=== PATIENT | female | born 1945 | race Caucasian/White ===

== ENCOUNTER 2017-10-06 09:05 | Day surgery (SDC) | payer MEDICARE ==
[~2017-10-06 09:05] MED LIST: Acetaminophen TAB* 325 MG PO PRN; Buffered Lidocaine 0.9% SYRIN* 5 ML/SYR SYRINGE INTRADERM ONE
[2017-10-06 12:15] VITALS: BP 144/71
[2017-10-06] MEDS ORDERED: Povidone Iodine 5% OPTH* 30 ML BTL ONE (12:24)
[2017-10-06] MEDS ORDERED: Neomycin/Polymy/Dex OPTH.SUSP* MAXITROL 0.1% 5 ML ONE (12:24)
[2017-10-06] MEDS ORDERED: Lidocaine 2% EPI 1:200000 MPF*10-20 ML VIAL ONE (12:24)
[2017-10-06] MEDS ORDERED: acetaZOLAMIDE TAB* 250 MG ONE (12:24)
[2017-10-06] MEDS ORDERED: Proparacaine 0.5% OPHTH.SOL* 15 ML BTL ONE (12:24)
[2017-10-06] MEDS ORDERED: Phenylephrine 2.5% OPTH.SOL* 2 ML BTL ONE (12:24)
[2017-10-06] MEDS ORDERED: Ketorolac 0.5% OPHTH (NF) 0.5 % 5 ML BTL ONE (12:24)
[2017-10-06] MEDS ORDERED: Cyclopentolate 1% OPTH.SOL* 2 ML BTL ONE (12:24)
[2017-10-06] MEDS ORDERED: Lidocaine 1%* 5 ML VIAL ONE (12:24)
--- NOTE | 2017-10-07 01:19 | OP ---
DATE OF OPERATION: 10/06/17 [facility] DATE OF : 41 SURGEON: Abdelrahman Serrato M.D. PREOPERATIVE DIAGNOSIS: Cataract, right eye. POSTOPERATIVE DIAGNOSIS: Cataract, right eye. OPERATIVE PROCEDURE: Extracapsular cataract extraction with intraocular lens implant right eye. DESCRIPTION OF PROCEDURE: The patient was brought to the operating room after being given 1/2% Alcaine with epinephrine drops in the preoperative area. The eye was prepped and draped in the usual sterile fashion. Sterile drape and eyelid speculum were placed. Again, topical 1/2% Alcaine with epinephrine was given. A paracentesis incision was made at the 9 o'clock position with the No.75 blade. Clear cornea incision 2.2 x 2.2-mm was created at the 12 o'clock position starting at the anterior limbus using the 2.2-mm keratome. The anterior chamber was irrigated with 0.4 mL of 1% non-preservative intracameral lidocaine and filled with DisCoVisc. A capsulorrhexis was completed using the cystotome and the Utrata forceps. Hydrodissection was performed with balanced salt solution. The lens nucleus was removed with the Phacoemulsification handpiece without incident. Cortex was removed with the irrigation-aspiration handpiece. The capsular bag was re-inflated using DisCoVisc and an [id number] 25 implant was inserted with the shooter. The irrigation-aspiration handpiece was used to remove all residual DisCoVisc. The eye was refilled with balanced salt solution and the wound checked and found to be watertight. Topical Maxitrol drops were given. [id number]/[facility] #: [id number] [facility]
== END 2017-10-06 11:49 | disposition home or self-care (01) ==
LOC: OREAST 09:05
PROVIDERS: ATTEND Specialist
DX: H25.11 Age-related nuclear cataract, right eye (principal); R03.0 Elevated blood-pressure reading, without diagnosis of hypertension; J30.9 Allergic rhinitis, unspecified; M19.049 Primary osteoarthritis, unspecified hand; F41.9 Anxiety disorder, unspecified
CPT/HCPCS: A9270-GY; V2787

== ENCOUNTER 2017-10-13 09:10 | Day surgery (SDC) | payer MEDICARE ==
[2017-10-13] MEDS ORDERED: Midazolam* 1 MG/ML 5 ML VIAL (5 MG) ONE (11:58)
[2017-10-13 12:32] VITALS: BP 137/57
[2017-10-13] MEDS ORDERED: acetaZOLAMIDE TAB* 250 MG ONE (15:32)
[2017-10-13] MEDS ORDERED: Povidone Iodine 5% OPTH* 30 ML BTL ONE (15:33)
[2017-10-13] MEDS ORDERED: Cyclopentolate 1% OPTH.SOL* 2 ML BTL ONE (15:33)
[2017-10-13] MEDS ORDERED: Phenylephrine 2.5% OPTH.SOL* 2 ML BTL ONE (15:33)
[2017-10-13] MEDS ORDERED: Lidocaine 2% EPI 1:200000 MPF*10-20 ML VIAL ONE (15:33)
[2017-10-13] MEDS ORDERED: Ketorolac 0.5% OPHTH (NF) 0.5 % 5 ML BTL ONE (15:33)
[2017-10-13] MEDS ORDERED: Proparacaine 0.5% OPHTH.SOL* 15 ML BTL ONE (15:33)
[2017-10-13] MEDS ORDERED: Neomycin/Polymy/Dex OPTH.SUSP* MAXITROL 0.1% 5 ML ONE (15:33)
--- NOTE | 2017-10-14 05:32 | OP ---
DATE OF OPERATION: 10/13/17 [facility] DATE OF : 41 SURGEON: Abdelrahman Serrato M.D. PREOPERATIVE DIAGNOSIS: Cataract, left. POSTOPERATIVE DIAGNOSIS: Cataract, left. OPERATIVE PROCEDURE: Extracapsular cataract extraction with intraocular lens implant left eye. DESCRIPTION OF PROCEDURE: The patient was brought to the operating room after being given 1/2% Alcaine with epinephrine drops in the preoperative area. The eye was prepped and draped in the usual sterile fashion. Sterile drape and eyelid speculum were placed. Again, topical 1/2% Alcaine with epinephrine was given. A paracentesis incision was made at the 3 o'clock position with the No.75 blade. Clear cornea incision 2.2 x 2.2-mm was created at the 6 o'clock position starting at the anterior limbus using the 2.2-mm keratome. The anterior chamber was irrigated with 0.4 mL of 1% non-preservative intracameral lidocaine and filled with DisCoVisc. A capsulorrhexis was completed using the cystotome and the Utrata forceps. Hydrodissection was performed with balanced salt solution. The lens nucleus was removed with the Phacoemulsification handpiece without incident. Cortex was removed with the irrigation-aspiration handpiece. The capsular bag was re-inflated using DisCoVisc and an [id number] 24.5 implant was inserted with the shooter. The irrigation-aspiration handpiece was used to remove all residual DisCoVisc. The eye was refilled with balanced salt solution and the wound checked and found to be watertight. Topical Maxitrol drops were given. [id number]/[facility] #: [id number] [facility]
== END 2017-10-13 13:31 | disposition home or self-care (01) ==
LOC: OREAST 09:10
PROVIDERS: ATTEND Specialist
DX: H25.12 Age-related nuclear cataract, left eye (principal); M19.90 Unspecified osteoarthritis, unspecified site; Z86.73 Personal history of transient ischemic attack (TIA), and cerebral infarction without residual deficits; F41.9 Anxiety disorder, unspecified; R42 Dizziness and giddiness
CPT/HCPCS: A9270-GY; J2250; V2788

== ENCOUNTER 2017-11-06 15:00 | Emergency (ER) | payer MEDICARE ==
--- OUTSIDE RECORDS SUMMARY | 2017-11-06 15:12 | XMS REPORT ---
:1945 External Reference #:[id number] Author Organization [facility] Address [address] [place] [address] Phone [phone] Care Team Providers Name Role Phone Jessica Guzman MD Primary Care Physician Unavailable Payers Type Date Identification Numbers Payment Provider Subscriber Medicare Primary Policy Number: [id number] Medicare - NGS Ольга Leander Diego PayID: [id number] [address] [facility] [place] [address] [place] Policy Number: [id number] [facility] Ольга Leander Diego PayID: [id number] [address] [place] [address] Problems Date Description Provider Status Onset: 09/08/2016 Nuclear senile cataract Ayush Davison M.D. Active Onset: 10/07/2017 Presence of intraocular lens Ayush Davison M.D. 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 right eye three times a day, start the day before surgery Ketorolac 09/27/ Active Solution 0.5% 10ml use one Abdelrahman Baljit Tromethamine 2018 drop in [place], the right M.D. eye three times a day, start the day before surgery Prednisolone 09/27/ Active Suspension 1% 15ml 1 drops Abdelrahman WillMargret Acetate 2018 right eye [place]leo, three M.D. times a day. taper as directed Aleve 00/00/ Active Capsules 220mg as needed Unknown 0000 Biotin Maximum 00/00/ Active Tablets 83506dim Unknown 0000 Dispers Results Description No Information Procedures Date CPT Code Description Status 10/13/2017 83330 Extracapsular Cataract Extraction W/Intraocular Lens Completed 10/06/2017 08412 Extracapsular Cataract Extraction W/Intraocular Lens Completed 09/27/2017 83043 Ophthalmic Biometry Completed 09/27/2017 30858 Ophthalmic Biometry Completed 09/21/2017 62986 Est Patient Comprehensive Exam Completed 09/08/2016 80082 New Patient Comprehensive Exam Completed Encounters Type Date Location Provider CPT E/M Dx Office Visit 09/27/2017 2:45p Abdelrahman Meehan MD, Abdelrahman Meehan, [address] H25.11 Kellie H25.12 Plan of Care Future Appointment(s):10/26/2017 9:00 am - Abdelrahman Meehan M.D. at Abdelrahman Meehan MD, 10/14/2017 - Abdelrahman Meehan M.D.Z96.1 Presence of intraocular lensComments:Smoking can increase the risk of developing or worsening any eye related disease, as well as affect your overall health. If you are a smoker, we strongly recommend that you quit.If you are not a smoker, we strongly recommend that you do not start. The artifical lens implant in your left eye appears to be stable. Since this is the first day after surgery, your left eye is still dilated and the vision will still be slightly blurry. The dilation will go down over the next day or two. Continue taking your eye drops as directed on the surgical calendar. If you have any questions, please call our office. ~LINDA MEEHAN RECOMMENDS THAT WHEN YOU ARE AT WORK AND ARE WORKING AT YOUR DESK, MAKE SURE YOU HAVE GOOD LIGHTING AND TRY A +1.00-+1.25 OVER THE COUNTER READE~Segun
--- OUTSIDE RECORDS SUMMARY | 2017-11-06 15:12 | XMS REPORT ---
:1945 External Reference #:[id number] Author Organization [facility] Address [address] [place] [address] Phone [phone] Care Team Providers Name Role Phone Jessica Guzman MD Primary Care Physician Unavailable Payers Type Date Identification Numbers Payment Provider Subscriber Medicare Primary Policy Number: [id number] Medicare - NGS Ольга Leander Diego PayID: [id number] [address] [place] [address] [place] Policy Number: [id number] [facility] Ольга Leander Diego PayID: [id number] [address] [place] [address] Problems Date Description Provider Status Onset: 09/08/2016 Nuclear senile cataract Ayush Davison M.D. Active Onset: 10/07/2017 Presence of intraocular lens Ayush Davison M.D. Active Family History Date Family Member(s) Problem(s) Comments Father No Current Problems Mother No Current Problems Social History Type Date Description Comments Marital Status Legal Status: Occupation [place] Work Status Retired ETOH Use Denies alcohol use Smoking Patient has never smoked Recreational Drug Use Denies Drug Use Daily Caffeine Consumes on average 1 soda per day Allergies, Adverse Reactions, Alerts Date Description Reaction Status Severity Comments 09/08/2016 Sulfa Antibiotics active 10/26/2017 Silver active Medications Medication Date Status Form Strength Qnty SIG Indications Ordering Provider Ketorolac 09/27/ Active Solution 0.5% 10ml 1 drop Abdelrahman J. Tromethamine 2018 left eye Arleo, daily M.D. Prednisolone 09/27/ Active Suspension 1% 15ml 1 drop Abdelrahman J. Acetate 2018 left eye [place]leo, daily M.D. Aleve / Active Capsules 220mg as needed Unknown 0000 Biotin Maximum / Active Tablets 97680udo Unknown 0000 Dispers Ciprofloxacin 09/27/ Hx Solution 0.3% 10unit instill Abdelrahman FERNANDEZ 2018 - s one drop Arleo, 10/25/ in the M.D. 2018 right eye three times a day, start the day before surgery Results Description No Information Procedures Date CPT Code Description Status 10/13/2017 93972 Extracapsular Cataract Extraction W/Intraocular Lens Completed 10/06/2017 87002 Extracapsular Cataract Extraction W/Intraocular Lens Completed 09/27/2017 53324 Ophthalmic Biometry Completed 09/27/2017 89379 Ophthalmic Biometry Completed 09/21/2017 95724 Est Patient Comprehensive Exam Completed 09/08/2016 60297 New Patient Comprehensive Exam Completed Encounters Type Date Location Provider CPT E/M Dx Office Visit 09/27/2017 2:45p Abdelrahman Serrato MD, Abdelrahman Serrato, [address] H25.11 Kellie H25.12 Plan of Care 10/26/2017 - Abdelrahman Serrato M.D.Z96.1 Presence of intraocular lensComments: Smoking can increase the risk of developing or worsening any eye related disease , as well as affect your overall health. If you are a smoker, we strongly recommend that you quit.If you are not a smoker, we strongly recommend that you do not start. Your lens implant looks stable in both eyes at this time. You should be done, or almost done with your drops at this time according to your surgical calendar. I have given you a prescription for glasses. If you have any questions, please feel free to call our office at .
--- NOTE | 2017-11-06 15:55 | ED ---
Adult Trauma - HPI Summary HPI Summary: The pt is a 72 y/o [facility] yesterday at 21:00. She tripped over a low bench hitting the floor with her head. She also scraped her face at the bridge of the nose. She notes soreness of the L thumb, epitaxis ( not actively bleeding), and swelling on the brow of her face. She denies LOC and visual disturbance. The sx are relieved by ice and Aleve. The pt denies use of blood thinners. This is scribe Della Ford documenting for attending Arpit Quinones. I, Arpit Quinones MD, personally performed the services described in this documentation as scribed in my presence and it is both accurate and complete. - History of Current Complaint Chief Complaint: EDHeadache Stated Complaint: FELL HIT HEAD Time Seen by Provider: 11/06/17 15:45 Hx Obtained From: Patient Mechanism of Injury: Fall Ambulatory at the Scene: No Onset/Duration: Started Days Ago - 1 day ago Onset of Pain: Post Accident Onset Severity: Moderate Current Severity: Moderate Pain Intensity: 4 Pain Scale Used: 0-10 Numeric Location: Head, Other - L thumb Alleviating Factor(s): Ice, OTC Meds - Aleve Associated Signs & Symptoms: Negative: Loss of Consciousness - Allergy/Home Medications Allergies/Adverse Reactions: Allergies Allergy/AdvReac Type Severity Reaction Status Date / Time No Known Allergies Allergy Verified 11/06/17 15:02 PMH/Surg Hx/FS Hx/Imm Hx Previously Healthy: No Musculoskeletal History: Reports: Hx Arthritis - hands, left knee Sensory History: Reports: Hx Cataracts - both eyes, Hx Contacts or Glasses - glasses Denies: Hx Hearing Aid Opthamlomology History: Reports: Hx Cataracts - both eyes, Hx Contacts or Glasses - glasses Neurological History: Reports: Hx Headaches - Cancer History Hx Chemotherapy: No Hx Radiation Therapy: No - Surgical History Surgery Procedure, Year, and Place: MENISCUS repair. right knee replacement 2016. appendectomy with 1972 Hx Anesthesia Reactions: No Infectious Disease History: No Infectious Disease History: Denies: Traveled Outside the [place] in Last 30 Days - Family History Known Family History: Positive: Other - Denies FHx of Breast CA and anesthesia reaction Negative: Cardiac Disease, Hypertension, Diabetes - Social History Occupation: Retired Lives: With Family Alcohol Use: None Substance Use Type: Reports: None Smoking Status (MU): Never Smoked Tobacco Review of Systems Eyes: Other - Negative: Changes in vision Positive: Other - Positive: Facial scrapes and swelling , epitaxis (not actively bleeding) Positive: Other - L thumb soreness Neurological: Negative - LOC All Other Systems Reviewed And Are Negative: Yes Physical Exam - Summary Physical Exam Summary: Appearance: The patient is well-nourished in no acute distress and in no acute pain. Skin: The skin is warm and dry and skin color reflects adequate perfusion. HEENT:Mild swelling over her L eyebrow; The head is normocephalic and atraumatic. The pupils are equal and reactive. The conjunctivae are clear and without drainage. Nares are patent and without drainage. Mouth reveals moist mucous membranes and the throat is without erythema and exudate. The external ears are intact. The ear canals are patent and without drainage. The tympanic membranes are intact. Neck: The neck is supple with full range of motion and non-tender. There are no carotid bruits. There is no neck vein distension. Respiratory: Chest is non-tender. Lungs are clear to auscultation and breath sounds are symmetrical and equal. Cardiovascular: Heart is regular rate and rhythm. There is no murmur or rub auscultated. Pulses are symmetrical and equal. Abdomen: The abdomen is soft and non-tender. There are normal bowel sounds heard in all four quadrants and there is no organomegaly palpated. Musculoskeletal: L thenar eminence; There is no back tenderness noted. Extremities have full range of motion. There is good capillary refill. There is no calf tenderness elicited. Neurological: Patient is alert and oriented to person, place and time. The patient has symmetrical motor strength in all four extremities. Cranial nerves are grossly intact. Deep tendon reflexes are symmetrical and equal in all four extremities. Psychiatric: The patient has an appropriate affect and does not exhibit any anxiety or depression. Triage Information Reviewed: Yes Vital Signs On Initial Exam: Initial Vitals Temp Pulse Resp BP Pulse Ox 98.6 F 91 16 143/90 98 11/06/17 15:03 11/06/17 15:03 11/06/17 15:03 11/06/17 15:03 11/06/17 15:03 Vital Signs Reviewed: Yes Diagnostics - Vital Signs Vital Signs Temp Pulse Resp BP Pulse Ox 11/06/17 15:40 91 20 97 11/06/17 15:03 98.6 F 91 16 143/90 98 - Laboratory Lab Statement: Any lab studies that have been ordered have been reviewed, and results considered in the medical decision making process. - Radiology L Wrist XRay Radiology Interpretation Completed By: Radiologist - IMPRESSION: OSTEOPENIA. OSTEOARTHRITIS. NO ACUTE OSSEOUS INJURY. THE DEGREE OF OSTEOPENIA MAY MAKE A ONDISPLACED FRACTURE RADIOGRAPHICALLY OCCULT. IF SYMPTOMS PERSIST, RECOMMEND REPEAT IMAGING. The ED Physician has reviewed this radiolology report and agrees with it. - CT Brain CT CT Interpretation Completed By: Radiologist - IMPRESSION: NO ACUTE INTRACRANIAL PATHOLOGY. The ED physician has reviewed this radiology report and agrees with it. Adult Trauma Course/Dx - Course Course Of Treatment: CT of the brain and x-ray of her left wrist were both negative. I recommended some additional pain medication on top of the Naprosyn that she is currently taking and follow up if not improving quickly. - Diagnoses Provider Diagnoses: Hand contusion, Head injury Discharge - Sign-Out/Discharge Documenting (check all that apply): Patient Departure - DC - Discharge Plan Condition: Stable Disposition: HOME Prescriptions: traMADol TAB* [Ultram*] 50 mg PO Q6HR PRN #20 tab MDD 4 PRN Reason: Pain Patient Education Materials: Head Injury (ED), Hematoma (ED) Referrals: Jessica Guzman MD [Primary Care Provider] - 3 Days Additional Instructions: Return to ED for any new or worsening symptoms - Billing Disposition and Condition Condition: STABLE Disposition: Home
--- NOTE | 2017-11-06 16:33 | RAD ---
HISTORY: trauma, left thumb pain COMPARISONS: None VIEWS: 3, Frontal, lateral, and oblique views of the left wrist FINDINGS: BONE DENSITY: There is diffuse osteopenia. BONES: There is no acute displaced fracture. There is a well-corticated bone fragment of the styloid process of L1 which May reflect remote post injury. JOINTS: There is advanced osteoarthritis of the first CMC joint. ALIGNMENT: There is no dislocation. SOFT TISSUES: Unremarkable. OTHER FINDINGS: None. IMPRESSION: OSTEOPENIA. OSTEOARTHRITIS. NO ACUTE OSSEOUS INJURY. THE DEGREE OF OSTEOPENIA MAY MAKE A NONDISPLACED FRACTURE RADIOGRAPHICALLY OCCULT. IF SYMPTOMS PERSIST, RECOMMEND REPEAT IMAGING. .
--- NOTE | 2017-11-06 16:53 | RAD ---
HISTORY: trauma, head trauma COMPARISONS: August 16, 2012 TECHNIQUE: Multiple contiguous axial CT scans were obtained of the head without intravenous contrast. FINDINGS: HEMORRHAGE/INFARCT: There is no hemorrhage or acute infarct. MASSES/SHIFT: There is no mass or shift. EXTRA-AXIAL SPACES: There are no extra-axial fluid collections. SULCI AND VENTRICLES: The sulci and ventricles are normal in size and position for the patient's stated age. CEREBRUM: There are no focal parenchymal abnormalities. BRAINSTEM: There are no focal parenchymal abnormalities. CEREBELLUM: There are no focal parenchymal abnormalities. VESSELS: The vessels are grossly normal. PARANASAL SINUSES: The paranasal sinuses are clear. ORBITS: The orbits are unremarkable. BONES AND SOFT TISSUE: There is mild soft tissue swelling along the left frontal scalp. OTHER: None IMPRESSION: NO ACUTE INTRACRANIAL PATHOLOGY.
[2017-11-06 17:45] VITALS: BP 155/86
== END 2017-11-06 17:45 | disposition home or self-care (01) ==
LOC: ED 15:00
DX: S60.222A Contusion of left hand, initial encounter (principal); S09.90XA Unspecified injury of head, initial encounter; W18.09XA Striking against other object with subsequent fall, initial encounter; Y93.9 Activity, unspecified; Y92.9 Unspecified place or not applicable; M85.832 Other specified disorders of bone density and structure, left forearm; M19.032 Primary osteoarthritis, left wrist
CPT/HCPCS: 70450; 99282

== ENCOUNTER → 2019-01-27 08:37 | Day surgery (SDC) | payer MEDICARE ==
[~2019-01-27 08:37] MED LIST changes: -Buffered Lidocaine 0.9% SYRIN* 5 ML/SYR SYRINGE INTRADERM ONE; +Buffered Lidocaine 1% SYRIN* 1 ML/SYRINGE INTRADERM ONE; +Dexamethasone IV* 4 MG/ML 1 ML (4 MG) IV SLOW PU ONE; +Dexamethasone IV* 4 MG/ML 1 ML (4 MG) ONE; +DiMENhydriNATE IV* 50 MG/ML VIAL IV PUSH PRN; +Famotidine IV* 10 MG/ML 2 ML (20 mg) IV ONE; +Famotidine IV* 10 MG/ML 2 ML (20 mg) ONE; +HYDROcodone/ACETAMIN 5-325 MG* 1 TAB PO PRN; +Ketorolac INJ* 30 MG/ML 1 ML VIAL ONE; +Lidocaine 2% PF * 5 ML VIAL ONE; +Midazolam* 1 MG/ML 2 ML VIAL (2 MG) ONE; +Naloxone* 0.4 MG/ML 1 ML VIAL IV PRN; +Ondansetron INJ* 2 MG/ML VIAL ONE; +Propofol* 10 MG/ML 20 ML BTL ONE; +Silver Nitrate/Potassium Nitr* 1 EA STICK ONE; +fentaNYL* 50 MCG/ML 2 ML VIAL (100 MCG VIAL) IV PRN; +fentaNYL* 50 MCG/ML 2 ML VIAL (100 MCG VIAL) ONE; +oxyCODONE TAB* 5 MG TAB PO PRN
[2019-01-27] MEDS: Lactated Ringers 1000 ML Bag* 1,000 ML IV SCH ×2 (10:19→11:40)
[2019-01-27 14:00] VITALS: BP 154/87
--- NOTE | 2019-02-10 03:08 | OP ---
DATE OF OPERATION: 01/27/19 - [facility] DATE OF : 41 SURGEON: Jon Angelo MD. ANESTHESIA: General anesthetic with endotracheal intubation. PRE-OP DIAGNOSIS: Pelvic ultrasound consistent with intrauterine mass, polyp versus fibroid. POST-OP DIAGNOSIS: Pelvic ultrasound consistent with intrauterine mass, polyp versus fibroid and stenotic atrophied cervix OPERATIVE PROCEDURES: Exam under anesthesia, the patient had been scheduled for a hysteroscopic polypectomy, D and C, and possible hysteroscopic myomectomy ; however, this was an aborted procedure. ESTIMATED BLOOD LOSS: None. FLUIDS: She received IV crystalloid fluid. URINE OUTPUT: Clear. DESCRIPTION OF PROCEDURE: The patient was taken to the operating room where she was identified. She was placed on the operating room table, where general anesthetic was obtained without difficulty. She was placed in the dorsal lithotomy position and prepped and draped in normal sterile fashion. Attention was then brought up to the patient's perineum, where an exam under anesthesia revealed normal external genitalia consistent with atrophic changes from menopause. A weighted speculum was returned to the patient's vagina. The bladder was catheterized and drained of clear urine. At this point, the cervix was identified and grasped with a single-tooth tenaculum. I then proceeded to identify the cervical os; however, this was noted to be completely stenotic and I was unable to introduce the smallest dilator available in the operating room, which consisted of a lacrimal duct dilator. Due to the extensive stenosis of the cervix, I was unable to start or do the procedure; therefore, a decision was made to abort the procedure at this time. All the instruments were removed from the patient's vagina. Sponge, lap and needle counts were correct x2. She was then transferred to the recovery room area in stable condition. [id number]/[facility] #: [id number] MTDD
== END | disposition home or self-care (01) ==
LOC: OR 08:37
PROVIDERS: ATTEND Obstetrics & Gynecology
DX: N84.0 Polyp of corpus uteri (principal); Z53.09 Procedure and treatment not carried out because of other contraindication; N88.2 Stricture and stenosis of cervix uteri; N95.2 Postmenopausal atrophic vaginitis; R14.0 Abdominal distension (gaseous); I10 Essential (primary) hypertension; R42 Dizziness and giddiness
CPT/HCPCS: A9270-GY; J1100; J1885; J2250; J2405; J2704; J3010

== ENCOUNTER 2019-11-28 11:34 | Observation (INO) ==
[~2019-11-28 11:34] MED LIST changes: -Acetaminophen TAB* 325 MG PO PRN; +Buffered Lidocaine 1% SYRIN 1 ml INTRADERM ONE; -Buffered Lidocaine 1% SYRIN* 1 ML/SYRINGE INTRADERM ONE; -Dexamethasone IV* 4 MG/ML 1 ML (4 MG) IV SLOW PU ONE; -Dexamethasone IV* 4 MG/ML 1 ML (4 MG) ONE; -DiMENhydriNATE IV* 50 MG/ML VIAL IV PUSH PRN; -Famotidine IV* 10 MG/ML 2 ML (20 mg) IV ONE; -Famotidine IV* 10 MG/ML 2 ML (20 mg) ONE; -HYDROcodone/ACETAMIN 5-325 MG* 1 TAB PO PRN; -Ketorolac INJ* 30 MG/ML 1 ML VIAL ONE; +Lactated Ringers 1000 ml BAG 1,000 ML IV SCH; -Lidocaine 2% PF * 5 ML VIAL ONE; -Midazolam* 1 MG/ML 2 ML VIAL (2 MG) ONE; -Naloxone* 0.4 MG/ML 1 ML VIAL IV PRN; -Ondansetron INJ* 2 MG/ML VIAL ONE; -Propofol* 10 MG/ML 20 ML BTL ONE; -Silver Nitrate/Potassium Nitr* 1 EA STICK ONE; -fentaNYL* 50 MCG/ML 2 ML VIAL (100 MCG VIAL) IV PRN; -fentaNYL* 50 MCG/ML 2 ML VIAL (100 MCG VIAL) ONE; -oxyCODONE TAB* 5 MG TAB PO PRN
[2019-11-28] MEDS ORDERED: ceFAZolin 2 GM PREMIX 2 GM/50 ML BAG ONE (11:56)
[2019-11-28] MEDS ORDERED: ROPIVACAINE 5 MG/ML 30 ML BTL (0.5%) ONE (14:53)
[2019-11-28] MEDS ORDERED: fentaNYL 100 mcg/2 ml 50 MCG/ML VIAL ONE ×3 (15:00→18:24)
[2019-11-28] MEDS ORDERED: Midazolam 2 mg/2 ml VIAL 1 mg/ml 2 ml VIAL (2 mg) ONE ×2 (15:00→15:30)
[2019-11-28] MEDS ORDERED: Rocuronium 50 mg VIAL 10 mg/ml 5 ml VIAL (50 mg) ONE ×2 (15:39→16:44)
[2019-11-28] MEDS ORDERED: DiMENhydriNATE IV 50 mg/ml 1 ml VIAL IV PUSH PRN (16:41)
[2019-11-28] MEDS ORDERED: Naloxone 0.4 mg VIAL 0.4 mg/ml 1 ml VIAL IV PRN (16:41)
[2019-11-28] MEDS ORDERED: Phenylephrine 40 mcg/mL 10mL (400mcg) SYRINGE ONE (17:16)
[2019-11-28] MEDS ORDERED: Ondansetron 4 mg VIAL 2 MG/ML 2 ml VIAL ONE (17:28)
[2019-11-28] MEDS ORDERED: Dexamethasone IV 4 MG/ML VIAL 1 ml VIAL ONE (17:28)
[2019-11-28] MEDS ORDERED: Metoclopramide 5 MG/ML VIAL (10 mg) ONE (17:28)
[2019-11-28] MEDS ORDERED: Sugammadex 500 MG/5 ML 5 ml VIAL IV PUSH ONE (17:28)
[2019-11-28] MEDS ORDERED: Morphine 2 MG/ML SYRINGE IV PRN (18:20)
[2019-11-28] MEDS ORDERED: Ondansetron ODT 4 mg TAB 4 MG TAB PO PRN (18:20)
[2019-11-28] MEDS ORDERED: Lactulose 30 ml UDC PO PRN (18:20)
[2019-11-28] MEDS ORDERED: oxyCODONE/Acetamin 5/325 mg TAB PO PRN ×2 (18:20)
[2019-11-28] MEDS ORDERED: Magnesium Hydroxide LIQ 30 ML UDC PO PRN (18:20)
[2019-11-28] MEDS ORDERED: Ondansetron 4 mg VIAL 2 MG/ML 2 ml VIAL IV PRN (18:20)
[2019-11-28] MEDS ORDERED: diPHENhydraMINE 25 mg TAB PO PRN (18:20)
[2019-11-28] MEDS ORDERED: diPHENhydraMINE IV 50 MG/ML 1 ml VIAL (BENADRYL) IV PRN (18:20)
[2019-11-28] MEDS: fentaNYL 100 mcg/2 ml 50 MCG/ML VIAL IV PRN ×4 (18:25→18:55)
[2019-11-28] MEDS ORDERED: HYDROmorphone 1 MG/1 ML SYRINGE ONE (18:58)
[2019-11-28] MEDS ORDERED: Lactated Ringers 1000 ml BAG 1,000 ML IV SCH (19:00)
[2019-11-28] MEDS: HYDROmorphone 1 MG/1 ML SYRINGE IV PRN ×2 (19:00→19:39)
[2019-11-28] MEDS: Magnesium Hydroxide LIQ 30 ML UDC PO SCH (21:27)
[2019-11-28] MEDS: ceFAZolin 1 GM ADVAN 1 GM in NS 0.9% 50 ML 50 ML IVPB SCH (23:32)
[2019-11-29] MEDS ORDERED: Polyethylene Glycol 3350 17 GM PACKET PO PRN (00:01)
[2019-11-29 06:21] LABS: Hematocrit 31 % (35-47); Hemoglobin 10.9 g/dL (12.0-16.0); Mean Platelet Volume 9.3 fL (7.4-10.4); Platelet Count 251 10^3/uL (150-450)
[2019-11-29 06:44] LABS: BUN/Creatinine Ratio 23.8 (8-20); Calcium 8.5 mg/dL (8.6-10.3); EGFR African American 111.2 (>60); EGFR Non-African American 91.9 (>60); Potassium 3.9 mmol/L (3.5-5.0)
[2019-11-29] MEDS: ceFAZolin 1 GM ADVAN 1 GM in NS 0.9% 50 ML 50 ML IVPB SCH ×2 (07:35→14:48)
[2019-11-29] MEDS ORDERED: Vitamin THERAPEUTIC TAB PO SCH (09:00)
[2019-11-29] MEDS: Magnesium Hydroxide LIQ 30 ML UDC PO SCH (09:31)
[2019-11-29 15:41] VITALS: BP 126/53
== END 2019-11-29 16:45 | disposition home or self-care (01) ==
LOC: AA 11:34 → INTOOBSV 11:34 → SSU 20:56
PROVIDERS: ADMIT Orthopaedic Surgery Adult Reconstructive Orthopaedic Surgery; ATTEND Orthopaedic Surgery Adult Reconstructive Orthopaedic Surgery

== ENCOUNTER 2020-10-10 09:00 | Observation (INO) ==
[2020-12-12] MEDS ORDERED: Buffered Lidocaine 1% SYRIN 1 ml INTRADERM ONE (06:00)
[2020-12-12] MEDS ORDERED: Lactated Ringers 1000 ml BAG 1,000 ML IV SCH ×2 (06:00→16:00)
[2020-12-12] MEDS ORDERED: Famotidine IV 10 MG/ML 2 ml VIAL (20 mg) IV ONE (06:00)
[2020-12-12] MEDS ORDERED: Famotidine IV 10 MG/ML 2 ml VIAL (20 mg) ONE (10:56)
[2020-12-12] MEDS ORDERED: ceFAZolin 2 GM in NS PREMIX 2 GM/100 ML BAG IVPB ONE (10:56)
[2020-12-12] MEDS ORDERED: Ropivacaine 5 MG/ML 20 ML VIAL 0.5% (100 MG) ONE (11:47)
[2020-12-12] MEDS ORDERED: Midazolam 2 mg/2 ml VIAL 1 mg/ml 2 ml VIAL (2 mg) ONE (12:04)
[2020-12-12] MEDS ORDERED: fentaNYL 100 mcg/2 ml 50 MCG/ML VIAL ONE ×4 (12:04→17:34)
[2020-12-12] MEDS ORDERED: ROPIVACAINE 5 MG/ML 30 ML BTL (0.5%) ONE ×2 (12:05→12:25)
[2020-12-12] MEDS ORDERED: Lidocaine 2% PF 5 ML VIAL ONE (12:06)
[2020-12-12] MEDS ORDERED: Propofol 10 MG/ML 20 ML BTL ONE ×2 (12:06→13:07)
[2020-12-12] MEDS ORDERED: Dexamethasone IV 4 MG/ML VIAL 1 ml VIAL ONE (12:07)
[2020-12-12] MEDS ORDERED: Ketamine HCL 50 mg/ml 10 ml VIAL (500 MG) ONE (12:07)
[2020-12-12] MEDS ORDERED: diPHENhydraMINE IV 50 MG/ML 1 ml VIAL (BENADRYL) ONE (12:07)
[2020-12-12] MEDS ORDERED: fentaNYL 250 mcg/5 ml 50 MCG/ML 5 ml VIAL (250 MCG) ONE (12:07)
[2020-12-12] MEDS ORDERED: Ondansetron 4 mg VIAL 2 MG/ML 2 ml VIAL ONE (12:07)
[2020-12-12] MEDS ORDERED: Rocuronium 50 mg VIAL 10 mg/ml 5 ml VIAL (50 mg) ONE (12:59)
[2020-12-12] MEDS ORDERED: Phenylephrine 40 mcg/mL 10mL (400mcg) SYRINGE ONE (13:10)
[2020-12-12] MEDS ORDERED: DiMENhydriNATE IV 50 mg/ml 1 ml VIAL IV PUSH PRN (13:27)
[2020-12-12] MEDS ORDERED: Naloxone 0.4 mg VIAL 0.4 mg/ml 1 ml VIAL IV PRN (13:27)
[2020-12-12] MEDS ORDERED: Ondansetron 4 mg VIAL 2 MG/ML 2 ml VIAL IV PRN ×2 (13:27→15:28)
[2020-12-12] MEDS ORDERED: Acetaminophen IV 1 GM/100ML 100 ML IV ONE (13:32)
[2020-12-12] MEDS ORDERED: Ondansetron ODT 4 mg TAB 4 MG TAB PO PRN (15:28)
[2020-12-12] MEDS ORDERED: Morphine 2 MG/ML SYRINGE IV PRN (15:28)
[2020-12-12] MEDS ORDERED: diPHENhydraMINE 25 mg TAB PO PRN (15:28)
[2020-12-12] MEDS ORDERED: Magnesium Hydroxide LIQ 30 ML UDC PO PRN (15:28)
[2020-12-12] MEDS ORDERED: diPHENhydraMINE IV 50 MG/ML 1 ml VIAL (BENADRYL) IV PRN (15:28)
[2020-12-12] MEDS ORDERED: Lactulose 30 ml UDC PO PRN (15:28)
[2020-12-12] MEDS ORDERED: Glycopyrrolate IV 0.2 MG/ML 1 ML VIAL ONE (15:49)
[2020-12-12] MEDS: fentaNYL 100 mcg/2 ml 50 MCG/ML VIAL IV PRN ×5 (15:58→17:34)
[2020-12-12] MEDS: Magnesium Hydroxide LIQ 30 ML UDC PO SCH (19:52)
[2020-12-12] MEDS: ceFAZolin 1 GM ADVAN 1 GM in NS 0.9% 50 ML 50 ML IVPB SCH (22:23)
[2020-12-13] MEDS: ceFAZolin 1 GM ADVAN 1 GM in NS 0.9% 50 ML 50 ML IVPB SCH ×2 (06:04→14:25)
[2020-12-13 06:34] LABS: Hematocrit 34 % (35-47); Hemoglobin 11.3 g/dL (12.0-16.0); Mean Platelet Volume 9.2 fL (7.4-10.4); Platelet Count 255 10^3/uL (150-450)
[2020-12-13 07:05] LABS: Calcium 8.5 mg/dL (8.6-10.3); EGFR African American 86.7 (>60); EGFR Non-African American 71.6 (>60); Potassium 4.5 mmol/L (3.5-5.0)
[2020-12-13] MEDS: Magnesium Hydroxide LIQ 30 ML UDC PO SCH (08:40)
[2020-12-13] MEDS ORDERED: Flu vaccine *QUAD* 2021-22* 0.5 ML SYRINGE IM ONE (09:00)
[2020-12-13] MEDS ORDERED: Vitamin THERAPEUTIC TAB PO SCH (09:00)
[2020-12-13 11:30] VITALS: BP 134/61
[2020-12-16] MEDS ORDERED: Scopolamine PATCH Remove NOTE PATCH OFF SCH (15:00)
== END 2020-12-13 16:30 | disposition home or self-care (01) ==
LOC: INTOOBSV 12-12 10:16 → AA 12-12 10:16 → SUATTDRO 12-12 10:16 → SSU 12-12 15:28
PROVIDERS: ADMIT Orthopaedic Surgery Adult Reconstructive Orthopaedic Surgery; ATTEND Orthopaedic Surgery Adult Reconstructive Orthopaedic Surgery